=== PATIENT | male | born 1950 | race Caucasian/White ===

== ENCOUNTER 2025-01-25 03:22 | Emergency (ER) | payer OTHER ==
[~2025-01-25] VITALS: Ht 177.8 cm; Wt 81.0 kg
--- NOTE | 2025-01-25 03:41 | ED.PDOC ---
SOB-HPI HPI Comments 74-year-old male came to ER for shortness of breath. Has been experiencing shortness of breath for the past few months, usually associated with nasal congestion, feels like his throat/airways are swollen, making him short of breath. Noted difficulty swallowing at times. Nasal sprays/ decongestants has offered slight temporary relief only Chief Complaint: Shortness of breath Time Seen by MD: 03:40 Reviewed notes: Nurses Notes Information Source: Patient Mode of Arrival: EMS Severity: Moderate Timing: Months Duration: Intermittent Context: At Rest PE Risk Factors: None History of: Intubation, Recent URI Associated Signs and Symptoms: Nasal Congestion Past Medical History PAST MEDICAL HISTORY: HTN Surgical History (Other): Left knee surgery Family History Family History: Reviewed,noncontributory to illness Social History Smoker: Non-Smoker Alcohol: Denies ETOH Use Drugs: Denies Drug Use Lives In: Home Constitutional: denies: chills, diaphoresis, fatigue, fever, malaise, sweats, weakness, others EENTM: reports: nose congestion, throat pain, throat swelling; denies: blurred vision, double vision, ear bleeding, ear discharge, ear drainage, ear pain, ear ringing, eye pain, eye redness, hearing loss, mouth pain, mouth swelling, nasal discharge, nose bleeding, nose pain, photophobia, tearing, voice changes, others Respiratory: reports: shortness of breath; denies: cough, hemoptysis, orthopnea, SOB at rest, SOB with excertion, stridor, wheezing, others Cardiovascular: denies: chest pain, dizzy spells, diaphoresis, Dyspnea on exertion, edema, irregular heart beat, left arm pain, lightheadedness, palpitati ons, PND, syncope, others Gastrointestinal: denies: abdomen distended, abdominal pain, blood streaked bowels, constipated, diarrhea, dysphagia, difficulty swallowing, hematemesis, melena, nausea, poor appetite, poor fluid intake, rectal bleeding, rectal pain, vomiting, others Genitourinary: denies: burning, dysuria, flank pain, frequency, hematuria, incontinence, penile discharge, penile sore, pain, testicle pain, testicle swelling, urgency, others Neurological: denies: dizziness, fainting, headache, left sided numbness, left sided weakness, numbness, paresthesia, pre-existing deficit, right sided numbness, right sided weakness, seizure, speech problems, tingling, tremors, weakness, others Musculoskeletal: denies: back pain, gout, joint pain, joint swelling, muscle pain, muscle stiffness, neck pain, others Integumetry: denies: bruises, change in color, change in hair/nails, dryness, laceration, lesions, lumps, rash, wounds, others Allergic/Immunocompromised: denies: Difficulty Healing, Frequent Infections, Hives, Itching, others Hematologic/Lymphatic: denies: anemia, blood clots, easy bleeding, easy bruising, swollen glands, others Endocrine: denies: excessive hunger, excessive sweating, excessive thirst, excessive urination, flushing, intolerance to cold, intolerance to heat, unexplained weight gain, unexplained weight loss, others Psychiatric: denies: anxiety, bipolar disorder, depression, hopeless, panic disorder, schizophrenia, sleepless, suicidal, others Physical Exam General Appearance: No Apparent Distress, Normal HEENT: Normal ENT Inspection, Pharynx Normal, TMs Normal Neck: Full Range of Motion, Non-Tender, Normal, Normal Inspection Respiratory: Chest Non-Tender, Lungs Clear, No Accessory Muscle Use, No Respiratory Distress, Normal Breath Sounds Cardiovascular: No Edema, No JVD, No Murmur, No Gallop, Normal Peripheral Pulses, Regular Rate/Rhythm Breast Exam: Deferred Gastrointestinal: No Organomegaly, Non Tender, No Pulsatile Mass, Normal Bowel Sounds, Soft Genitalia: Deferred Pelvic: Deferred Rectal: Deferred Extremities: No calf tenderness, Normal capillary refill, Normal inspection, Normal range of motion, Non-tender, No pedal edema Musculoskeletal : Apperance: Normal Neurologic: 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 Was a procedure done?: No Differential Dx Differential Diagnosis: Anxiety, Asthma, Bronchitis, Pneumonia, Respiratory Distress, Sinusitis, Allergic Rhinitis X-Ray, Labs, Meds, VS Vital Signs Date Time Temp Pulse Resp B/P (MAP) Pulse Ox O2 Delivery O2 Flow Rate FiO2 01/25/25 03:22 98.4 92 16 156/93 (114) 98 98.4 Procedure: XY NECK FOR SOFT TISSUE Exam Date: 01/25/2025 04:00 AM History: throat feels tight possible swollen Comparison Study: None Technique: Soft Tissue Neck: AP and lateral views. Findings: No evidence of soft tissue swelling or radiopaque foreign body. Epiglottis appears normal. Impression: 1. Negative soft tissue neck. Time of 1ST Reevaluation: 03:36 Reevaluation 1ST: Unchanged Patient Education/Counseling: Diagnosis, Treatment Family Education/Counseling: No Family Present Departure 1 Departure Time of Disposition: 05:00 Impression: Primary Impression: Throat discomfort Disposition: HOME / SELF CARE / HOMELESS Condition: Stable e-Prescriptions Fluticasone Furoate (Flonase Sensimist) 27.5 Mcg/[place] 27.5 MCG NA Q6HP PRN, #30 ML 3 Refills Prov: AMBERLY GUERRERO MD 01/25/25 Triprolidine HCl (Flonase Nighttime Allergy) 2.5 Mg Tab 2.5 MG PO QHSP PRN, #60 TAB Prov: AMBERLY GUERRERO MD 01/25/25 Discharged With: Self Critical Care Note Critical Care Time?: No Stability Stability form required: No Heart Score Heart Score: Heart Score Response (Comments) Value History N/A 0 EKG N/A 0 Age N/A 0 Risk Factors N/A 0 Troponin N/A 0 Total 0 I personally scribed for AMBERLY GUERRERO MD ([employer]) on 01/25/25 at 03:41. Electronically submitted by Sravan Aguilar ([email or web address]). I personally scribed for AMBERLY GUERRERO MD (IRENA) on 01/25/25 at 04:53. Electronically submitted by Sravan Aguilar ([email or web address]). AMBERLY GUERRERO MD Jan 25, 2025 03:41
--- NOTE | 2025-01-25 04:51 | DVH ---
Procedure: XY NECK FOR SOFT TISSUE Exam Date: 01/25/2025 04:00 AM History: throat feels tight possible swollen Comparison Study: None Technique: Soft Tissue Neck: AP and lateral views. Findings: No evidence of soft tissue swelling or radiopaque foreign body. Epiglottis appears normal. Impression: 1. Negative soft tissue neck.
[2025-01-25] MEDS ORDERED: [UNRECOGNIZED DRUG - CODE] PO (04:57)
[2025-01-25] MEDS ORDERED: FLUT1SUS (04:57)
[2025-01-25 05:20] VITALS: BP 156/93; PULSE 82; RESP 16; TEMP 98.4; O2SAT 98
== END 2025-01-25 05:27 | disposition home or self-care (01) ==
LOC: EDBD 03:22 → ER 03:25
DX: R07.0 Pain in throat (principal); R06.02 Shortness of breath; I10 Essential (primary) hypertension; Z98.890 Other specified postprocedural states
CPT/HCPCS: 70360